=== PATIENT | male | born 2000 | race Caucasian/White ===

== ENCOUNTER 2020-07-04 02:57 | Outpatient (CLI) | payer OTHER, SELFPAY ==
--- OUTSIDE RECORDS SUMMARY | 2020-07-04 03:00 | XMS_ITS ---
:2000 Author Care Team Providers Name Role Phone DR. BONILLA NAJERA Primary Care Provider [phone] DR. BONILLA NAJERA Referring Provider [phone] Allergies Code Code System Name Reaction Severity Status Onset NKDA ? Medications No Medications Reported Problems Name Status Onset Date Source ? Ingrowing Nail Active 12/15/2018 ? Procedures None recorded. Results Lab Results None recorded. Past Encounters 01/11/2019 Ingrowing Great Toenail Shashi [place]: [address] [phone], [place]. Social History Tobacco Smoking Status Never Smoker Notes: 01/11/19 Vaccine List None recorded. Plan of Care Reminders Provider Appointments None ? ? recorded. Lab None ? ? recorded. Referral None ? ? recorded. Procedures None ? ? recorded. Surgeries None ? ? recorded. Imaging None ? ? recorded. Vitals 01/11/2019 09:30AM PODIATRY FOLLOW UP Height Weight BMI Blood Pressure 182.88 cm 68.04 kg 20.3 kg/m2 102/52 mm[Hg] 12/29/2018 10:30AM PODIATRY NEW PATIENT Height Weight BMI Blood Pressure 182.88 cm 68.04 kg 20.3 kg/m2 90/62 mm[Hg]
[2020-07-05 18:47] LABS: COVID-19 RT-PCR UVMMC Result Negative (Negative)
== END 2020-07-04 03:17 ==
PROVIDERS: PCP Pediatrics; Visit Provider Pediatrics
DX: Z20.828 Contact with and (suspected) exposure to other viral communicable diseases (principal)
CPT/HCPCS: U0003